=== PATIENT | male | born 1980 | race Caucasian/White ===

== ENCOUNTER 2017-03-03 20:32 | Emergency (ER) | payer OTHER ==
[2017-03-04] MEDS ORDERED: IBUPROFEN 600 MG TABLET PO ONE (00:22)
[2017-03-04] MEDS ORDERED: ACETAMINOPHEN 325 MG TABLET PO ONE (00:22)
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
[2017-03-04 02:01] VITALS: BP 132/84
== END 2017-03-04 01:55 | disposition home or self-care (01) ==
LOC: ER 20:32
DX: S69.92XA Unspecified injury of left wrist, hand and finger(s), initial encounter (principal); M79.602 Pain in left arm; V89.2XXA Person injured in unspecified motor-vehicle accident, traffic, initial encounter; F17.200 Nicotine dependence, unspecified, uncomplicated
CPT/HCPCS: 99283

== ENCOUNTER 2017-03-09 07:40 | Emergency (ER) | payer OTHER ==
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
[2017-03-09] MEDS ORDERED: LIDOCAINE 5% (700 MG) TRANSDERMAL ADH..PATCH TP ONE (09:08)
[2017-03-09 09:42] VITALS: BP 122/88
== END 2017-03-09 09:45 | disposition home or self-care (01) ==
LOC: ER 07:40
DX: R07.81 Pleurodynia (principal); F17.200 Nicotine dependence, unspecified, uncomplicated
CPT/HCPCS: 99283